=== PATIENT | female | born 1950 | race Caucasian/White ===

== ENCOUNTER 2024-03-25 19:03 | Observation (INO) ==
[2024-03-25 19:42] LABS: Hematocrit (blood only) 48.2 % (37.0-47.0); Hemoglobin 15.7 g/dl (12.0-16.0); Mean Corpuscular Hemoglobin 27.3 pg (25.0-34.0); Mean Corpuscular Hgb Conc 32.6 g/dL (32.0-36.0); Mean Corpuscular Volume 83.8 fL (80.0-100.0); Mean Platelet Volume 9.4 fL (9.4-12.4); Platelet Count 328 K/uL (130-400); RDW Coefficient of Variation 13.7 % (11.5-14.5); RDW Standard Deviation 41.8 fL (36.4-46.3); Red Blood Count 5.75 M/uL (4.20-5.40)
[2024-03-25 19:55] LABS: Albumin Level 4.8 gm/dl (3.4-5.0); Bilirubin,Total 0.5 mg/dl (0.2-1.0); Calcium 9.5 mg/dl (8.6-10.3); Potassium 3.5 mmol/L (3.5-5.1)
[2024-03-25 19:59] LABS: Basophils # (auto) 0.04 K/uL (0.00-0.20); Basophils % (auto) 0.2 %; Eosinophils # (auto) 0.01 K/uL (0.00-0.50); Eosinophils % (auto) 0.1 %; Immature Granulocytes # (auto) 0.09 K/uL (0.01-0.20); Immature Granulocytes % (auto) 0.5 %; Lymphocytes # (auto) 0.29 K/uL (1.20-3.40); Lymphocytes % (auto) 1.7 %; Monocytes # (auto) 0.49 K/uL (0.11-0.59); Monocytes % (auto) 2.8 %; Neutrophils # (auto) 16.48 K/uL (1.40-6.50); Neutrophils % (auto) 94.7 %
[2024-03-25 20:01] LABS: Albumin Globulin Ratio 1.6 (0.9-2); BUN Creatinine Ratio 37.3 (10-20); Total Protein 7.8 gm/dl (6.0-8.3)
[2024-03-25 21:39] LABS: Adenovirus F 40/41 PCR Not Detected (NotDetected); Astrovirus PCR Not Detected (NotDetected); Campylobacter PCR Not Detected (NotDetected); Cryptosporidium PCR Not Detected (NotDetected); Cyclospora cayetanensis PCR Not Detected (NotDetected); Entamoeba histolytica PCR Not Detected (NotDetected); Enteroaggregative E.coli(EAEC) Not Detected (NotDetected); Enteropathogenic E.coli (EPEC) Not Detected (NotDetected); Enterotoxigenic E.coli (ETEC) Not Detected (NotDetected); Giardia lamblia PCR Not Detected (NotDetected); Plesiomonas shigelloides PCR Not Detected (NotDetected); Rotavirus A PCR Not Detected (NotDetected); Salmonella PCR Not Detected (NotDetected); Sapovirus PCR Not Detected (NotDetected); Shiga-like Toxin E.coli (STEC) Not Detected (NotDetected); Shigella/Enteroinvasive E.coli Not Detected (NotDetected); Vibrio cholerae PCR Not Detected (NotDetected); Vibrio species PCR Not Detected (NotDetected); Yersinia enterocolitica PCR Not Detected (NotDetected)
[2024-03-25 21:41] LABS: Norovirus GI/GII PCR DETECTED (NotDetected)
--- NOTE | 2024-03-25 21:50 | Emergency Department Note ---
Impression & Plan Nausea, vomiting, and diarrhea ED Provider Note NAME: JUAN PABLO ROMERO AGE: 74 SEX: Female INFORMANT: Patient ED PROVIDER(S): Martin Sanders MD CHIEF COMPLAINT: Abdominal pain PLAN: Disposition: Admitted Outpatient prescription management: none Referral: None MEDICAL DECISION MAKING: Patient presented because abdominal pain. Workup was initiated. She was found to have a leukocytosis on CBC and dehydration on chemistry panel. C. difficile testing was negative. Patient was found to have norovirus on stool bio fire. Patient was hydrated and treated with morphine and Zofran. CT imaging of the abdomen pelvis was performed. Patient was found to have an enteritis. She was feeling better on reassessment although was still mildly symptomatic. Patient underwent a p.o. challenge. She had increased pain and nausea. She was given additional morphine and Zofran. Hydration was ordered as well. Suspect norovirus is the root cause of this illness however the patient is unable to tolerate p.o. and safely be discharged. Consultation was made with Dr. Travis Chiang of the [facility] service. Patient was evaluated in the ER for further management. Care/management discussed with: workshop manager Level of care consideration(s): After review of the information above and other included data, I feel the patient requires escalation of care to admission Triage Nursing notes: reviewed and agree them. Vital Signs: reviewed and remarkable for no significant abnormalities Additional History obtained from: none Chronic Medical/Social Conditions affecting care: History of colon resection, von Willebrand's disease Prior/ Outside/ External records reviewed: none Differential Diagnosis: Etiologies such as gastroenteritis, food borne illness, infections, appendicitis, diverticulitis, inflammatory bowel disease, obstruction, GI bleed, biliary pathology, as well as others were entertained. Diagnostics, independently interpreted by me: ECG: Deferred Cardiac Monitoring: Cardiac monitoring ordered by me: The patient was placed on continuous cardiac monitoring and observed. It revealed a normal sinus rhythm at 95 beats per minute without ectopy or evidence of dysrhythmia. Medical decision rules: none Imaging studies: CT imaging reveals the presence of enteritis. No obstruction. HPI: 74 year old Female arrives for evaluation of abdominal pain. This started today around 11:00 and is in the epigastrium. The patient also notes the following associated symptoms, nausea, vomiting, diarrhea, elevated heart rate. The patient has taken no medication for relieving factors. Current pain is rated as 8/10. Patient notes history of bowel resection secondary to diverticulitis. Pt denies LOC, headache, fevers, chills, diaphoresis, visual changes, neck pain, chest pain, breathing difficulties, back pain, melena, hematochezia, urinary symptoms, numbness, weakness, lymphadenopathy, rash, or other complaints. PAST MEDICAL HISTORY: See Below, diverticulitis, von Willebrand's disease PAST SURGICAL HISTORY: See Below, bowel resection SOCIAL HISTORY: See Below, former smoker HOME MEDICATIONS: See Below ALLERGIES: See Below VITALS: See Below PHYSICAL EXAMINATION: GENERAL: Awake, alert, uncomfortable-appearing, in no distress HENT: Normocephalic, atraumatic. Oropharynx unremarkable. EYES: Normal conjunctiva. Sclera non-icteric. NECK: Inspection normal. Non-tender. Supple. No nuchal rigidity. FROM. No masses. RESPIRATORY: Clear to auscultation. No wheezes. No rales. Normal respiratory effort. CARDIAC: Normal rate. Normal rhythm. No murmurs. No rubs. Extremities warm and well perfused. Pulses equal. No JVD. GI: Soft, non-distended. Epigastric tenderness to palpation. No rebound or guarding. No masses. RECTAL: Deferred. MUSCULOSKELETAL: Atraumatic. Chest examination reveals no tenderness. The back is symmetrical on inspection without obvious abnormality. There is no CVA tenderness to palpation. No joint edema. LOWER EXTREMITIES: Calves are equal size bilaterally and non-tender. No edema. No discoloration. NEURO: Normal sensorium. No sensory or motor deficits noted. SKIN: No rash or jaundice noted. PROCEDURES: none CRITICAL CARE: none OBSERVATION NOTE: none Past Med/Surg History Problem List (Updated 03/26/24 @ 01:59 by Daniel Fritz DO) Dehydration Fibromyalgia VWD (von Willebrand's disease) Asthma Gastroenteritis due to norovirus Abdominal pain Nausea, vomiting, and diarrhea (Acute) Social History Smoking Status: Former smoker Tobacco Type: Cigarettes Preferred Language: Argentine Feels Safe at Home: Yes Allergies Allergies Allergy/AdvReac Type Severity Reaction Status Date / Time bacitracin Allergy Unknown Unverified 03/26/24 00:59 [From Neosporin ([id number])] cat dander Allergy Unknown Unverified 03/26/24 00:59 neomycin Allergy Unknown Unverified 03/26/24 00:59 [From Neosporin ([id number])] polymyxin B Allergy Unknown Unverified 03/26/24 00:59 [From Neosporin ([id number])] aspirin AdvReac Unknown Unverified 03/26/24 00:59 Home Meds Home Medications Medication Instructions Recorded Confirmed fluticasone propionate 44 1 inh inhalation DAILY 03/26/24 03/26/24 mcg/actuation HFA aerosol inhaler gabapentin 300 mg capsule 300 mg PO TID 03/26/24 03/26/24 hydrochlorothiazide 25 mg tablet 25 mg PO DAILY 03/26/24 03/26/24 lorazepam 1 mg tablet 1 mg PO BID PRN Anxiety 03/26/24 03/26/24 meloxicam 7.5 mg tablet 7.5 mg PO DAILY 03/26/24 03/26/24 tirzepatide 10 mg/0.5 mL 10 mg subcut WK 03/26/24 03/26/24 subcutaneous pen injector (Rosa) Results & Data (ED) Vital Signs Vital Signs - 24 hr 03/25/24 19:14 03/25/24 21:11 03/25/24 21:12 Temperature 36.7 C Temperature Source Temporal Artery Scan Pulse Rate 108 H Pulse Rate [Apical] 98 H Pulse Rate from SpO2 Sensor Respiratory Rate 20 14 Respiratory Effort / Characteristics Non-Labored Spontaneous Non-Labored Spontaneous Respiratory Depth Normal Normal Respiratory Pattern Regular Blood Pressure 156/101 H 170/82 H Blood Pressure [Right Arm] 170/82 H Blood Pressure Mean 119 106 Blood Pressure Mean [Right Arm] 111 Blood Pressure Position [Right Arm] Sitting Pulse Oximetry 93 95 Oxygen Delivery Method Room Air Room Air Sepsis Recent Fever Within 48 Hours No Sepsis New/Unexplained Change in Mental Status No Sepsis Action Taken by Nursing No Action Required 03/25/24 21:16 03/25/24 21:36 03/25/24 22:06 Temperature Temperature Source Pulse Rate 102 H 98 H 95 H Pulse Rate [Apical] Pulse Rate from SpO2 Sensor 94 H Respiratory Rate 19 18 Respiratory Effort / Characteristics Respiratory Depth Respiratory Pattern Blood Pressure Blood Pressure [Right Arm] Blood Pressure Mean Blood Pressure Mean [Right Arm] Blood Pressure Position [Right Arm] Pulse Oximetry 92 Oxygen Delivery Method Sepsis Recent Fever Within 48 Hours Sepsis New/Unexplained Change in Mental Status Sepsis Action Taken by Nursing 03/25/24 22:39 03/25/24 23:00 03/25/24 23:06 Temperature Temperature Source Pulse Rate 90 89 91 H Pulse Rate [Apical] Pulse Rate from SpO2 Sensor 90 Respiratory Rate 17 14 Respiratory Effort / Characteristics Respiratory Depth Respiratory Pattern Blood Pressure Blood Pressure [Right Arm] Blood Pressure Mean Blood Pressure Mean [Right Arm] Blood Pressure Position [Right Arm] Pulse Oximetry 95 Oxygen Delivery Method Sepsis Recent Fever Within 48 Hours Sepsis New/Unexplained Change in Mental Status Sepsis Action Taken by Nursing 03/25/24 23:12 03/25/24 23:33 03/26/24 00:00 Temperature Temperature Source Pulse Rate 88 91 H Pulse Rate [Apical] 91 H Pulse Rate from SpO2 Sensor 90 Respiratory Rate 20 21 19 Respiratory Effort / Characteristics Non-Labored Respiratory Depth Normal Respiratory Pattern Blood Pressure Blood Pressure [Right Arm] Blood Pressure Mean Blood Pressure Mean [Right Arm] Blood Pressure Position [Right Arm] Pulse Oximetry 98 91 Oxygen Delivery Method Room Air Sepsis Recent Fever Within 48 Hours Sepsis New/Unexplained Change in Mental Status Sepsis Action Taken by Nursing 03/26/24 01:00 Temperature Temperature Source Pulse Rate 93 H Pulse Rate [Apical] Pulse Rate from SpO2 Sensor Respiratory Rate 22 Respiratory Effort / Characteristics Respiratory Depth Respiratory Pattern Blood Pressure Blood Pressure [Right Arm] Blood Pressure Mean Blood Pressure Mean [Right Arm] Blood Pressure Position [Right Arm] Pulse Oximetry Oxygen Delivery Method Sepsis Recent Fever Within 48 Hours Sepsis New/Unexplained Change in Mental Status Sepsis Action Taken by Nursing Laboratory Data 03/25/24 19:28 03/25/24 19:28 Lab Results 03/25/24 03/25/24 Range/Units 19:28 20:10 WBC 17.40 H (4.8-10.8) K/ul RBC 5.75 H (4.20-5.40) M/uL Hgb 15.7 (12.0-16.0) g/dl Hct 48.2 H (37.0-47.0) % MCV 83.8 (80.0-100.0) fL MCH 27.3 (25.0-34.0) pg MCHC 32.6 (32.0-36.0) g/dL RDW Std Deviation 41.8 (36.4-46.3) fL RDW Coeff of Jc 13.7 (11.5-14.5) % Plt Count 328 (130-400) K/uL MPV 9.4 (9.4-12.4) fL Immature Gran % (Auto) 0.5 % Neut % (Auto) 94.7 % Lymph % (Auto) 1.7 % [place] % (Auto) 2.8 % Eos % (Auto) 0.1 % Baso % (Auto) 0.2 % Neut # (Auto) 16.48 H (1.40-6.50) K/uL Lymph # (Auto) 0.29 L (1.20-3.40) K/uL [place] # (Auto) 0.49 (0.11-0.59) K/uL Eos # (Auto) 0.01 (0.00-0.50) K/uL Baso # (Auto) 0.04 (0.00-0.20) K/uL Immature Gran # (Auto) 0.09 (0.01-0.20) K/uL Sodium 141 (136-145) mmol/L Potassium 3.5 (3.5-5.1) mmol/L Chloride 104 (98-107) mmol/L Carbon Dioxide 26 (21-32) mmol/L Anion Gap 11 (3-11) BUN 25 H (6-23) mg/dl Creatinine 0.67 (0.6-1.2) mg/dl Est Cr Clr Drug Dosing 90.0 ml/min eGFR 92.23 BUN/Creatinine Ratio 37.3 H (10-20) Glucose 129 H (70-99(Fasting)) mg/dl Calcium 9.5 (8.6-10.3) mg/dl Total Bilirubin 0.5 (0.2-1.0) mg/dl AST 14 (13-39) U/L ALT 13 (7-52) U/L Alkaline Phosphatase 60 (34-104) U/L Troponin I High Sens 4.4 (0-14) pg/ml Total Protein 7.8 (6.0-8.3) gm/dl Albumin 4.8 (3.4-5.0) gm/dl Globulin 3.0 (2.5-4.0) gm/dl Albumin/Globulin Ratio 1.6 (0.9-2) Lipase 18 (11-82) U/L Stl C. cayetanensis PCR Not Detected (NotDetected) Stool Rotavirus A PCR Not Detected (NotDetected) Stl Adenov F 40/41 PCR Not Detected (NotDetected) Stool Astrovirus (PCR) Not Detected (NotDetected) Stool Campylobacter PCR Not Detected (NotDetected) Stl C. diff Tox B Gene Negative Cdiff Gene (Neg) Stool Cryptosporidium PCR Not Detected (NotDetected) Stl E.coli Shiga Tox PCR Not Detected (NotDetected) Stl Enterotoxigenic E PCR Not Detected (NotDetected) Stool EPEC (PCR) Not Detected (NotDetected) Stool EAEC (PCR) Not Detected (NotDetected) Stl E. histolytica PCR Not Detected (NotDetected) Stool Giardia Lamblia PCR Not Detected (NotDetected) Stool Salmonella PCR Not Detected (NotDetected) Stool Sapovirus (PCR) Not Detected (NotDetected) Stl P. shigelloides PCR Not Detected (NotDetected) Stl Shigella/EIEC PCR Not Detected (NotDetected) St Y.enterocolitica PCR Not Detected (NotDetected) Stool Vibrio (PCR) Not Detected (NotDetected) Stl Vibrio cholerae PCR Not Detected (NotDetected) Stl Norovirus GI/GII PCR DETECTED A* (NotDetected) Administered Medications Sodium Chloride (Nss) 1,000 mls @ 125 mls/hr IV .Q8H ASAD Stop: 03/27/24 00:44 Last Admin: 03/26/24 00:45 Dose: 125 mls/hr Documented By: RADHA Discontinued Medications Acetaminophen (Acetaminophen 500 Mg Tab) Confirm Administered Dose 1,000 mg .ROUTE .STK-MED ONE Stop: 03/25/24 23:30 Last Admin: 03/25/24 23:30 Dose: 1,000 mg Documented By: RADHA Sodium Chloride (Nss) 1,000 mls @ 999 mls/hr IV .Q1H1M ONE Stop: 03/25/24 22:39 Last Infusion: 03/25/24 23:13 Dose: Infused Documented By: Admin: 03/25/24 22:06 Dose: 999 mls/hr Documented By: [facility] Morphine Sulfate (Morphine Sulfate 4 Mg/Ml 1 Ml Carp\Vial) 4 mg IV Q15M PRN PRN Reason: Pain Stop: 04/08/24 21:37 Last Admin: 03/26/24 00:45 Dose: 4 mg Documented By: RADHA Ondansetron HCl (Ondansetron Inj 2 Mg/Ml 2 Ml Vial) 4 mg IV NOW STA Stop: 03/25/24 21:39 Last Admin: 03/25/24 22:06 Dose: 4 mg Documented By: URIEL Ondansetron HCl (Ondansetron Inj 2 Mg/Ml 2 Ml Vial) 4 mg IV NOW STA Stop: 03/26/24 00:40 Last Admin: 03/26/24 00:45 Dose: 4 mg Documented By: RADHA Imaging Data Radiologist's Impression: Abdomen/Pelvis CT 03/25/24 21:25 Exam(s): CT ABDOMEN + PELVIS Without Contrast EXAM: CT Abdomen and Pelvis Without Intravenous Contrast CLINICAL HISTORY: Abdominal Pain and vomiting. TECHNIQUE: Axial computed tomography images of the abdomen and pelvis without intravenous contrast. CTDI is 28.12 mGy and DLP is 1365.32 mGy-cm. Automated exposure control was utilized for the study. A dose lowering technique was utilized adhering to the principles of ALARA. COMPARISON: Bilateral breast prosthesis are partially visualized. FINDINGS: Lung bases: Unremarkable. No mass. No consolidation. ABDOMEN: Liver: Unremarkable. Gallbladder and bile ducts: Cholecystectomy. No ductal dilation. Pancreas: Unremarkable. No ductal dilation. Spleen: Unremarkable. No splenomegaly. Adrenals: Unremarkable. No mass. Kidneys and ureters: Parapelvic renal cysts are present bilaterally, no follow-up is needed. No obstructing stones. No hydronephrosis. Stomach and bowel: The small bowel and colon are fluid-filled without obstruction. Diverticulosis. No mucosal thickening. There are surgical changes of the distal colon. PELVIS: Appendix: No findings to suggest acute appendicitis. Bladder: Unremarkable. No stones. Reproductive: Unremarkable as visualized. ABDOMEN and PELVIS: Intraperitoneal space: Unremarkable. No free air. No significant fluid collection. Bones/joints: There are degenerative changes of the spine. No acute fracture. No dislocation. Soft tissues: Unremarkable. Vasculature: Unremarkable. No abdominal aortic aneurysm. Lymph nodes: Unremarkable. No enlarged lymph nodes. IMPRESSION: 1. The small bowel and colon are fluid-filled without obstruction. This likely represent enterocolitis. 2. Diverticulosis. Electronically signed by: Margie Toledo MD 03/25/24 22:58 PM Discharge Plan Visit Data Chief Complaint: Abdominal Pain Stated Complaint: VOMITING, HIGH HEART RATE, DIARREHEA ED Provider: Martin Sanders Discharge Problem: Nausea, vomiting, and diarrhea Discharge Instructions Interventions: ED Discharge Assessment Last Done: 03/26/24 02:53
[2024-03-25] MEDS: ONDANSETRON INJ 2 MG/ML 2 ML VIAL IV STA (22:06)
[2024-03-25] MEDS: SODIUM CHLORIDE 0.9% 1,000 ML IV ONE (22:06)
--- NOTE | 2024-03-25 22:59 | CT Scan Report ---
Exam(s): CT ABDOMEN + PELVIS Without Contrast EXAM: CT Abdomen and Pelvis Without Intravenous Contrast CLINICAL HISTORY: Abdominal Pain and vomiting. TECHNIQUE: Axial computed tomography images of the abdomen and pelvis without intravenous contrast. CTDI is 28.12 mGy and DLP is 1365.32 mGy-cm. Automated exposure control was utilized for the study. A dose lowering technique was utilized adhering to the principles of ALARA. COMPARISON: Bilateral breast prosthesis are partially visualized. FINDINGS: Lung bases: Unremarkable. No mass. No consolidation. ABDOMEN: Liver: Unremarkable. Gallbladder and bile ducts: Cholecystectomy. No ductal dilation. Pancreas: Unremarkable. No ductal dilation. Spleen: Unremarkable. No splenomegaly. Adrenals: Unremarkable. No mass. Kidneys and ureters: Parapelvic renal cysts are present bilaterally, no follow-up is needed. No obstructing stones. No hydronephrosis. Stomach and bowel: The small bowel and colon are fluid-filled without obstruction. Diverticulosis. No mucosal thickening. There are surgical changes of the distal colon. PELVIS: Appendix: No findings to suggest acute appendicitis. Bladder: Unremarkable. No stones. Reproductive: Unremarkable as visualized. ABDOMEN and PELVIS: Intraperitoneal space: Unremarkable. No free air. No significant fluid collection. Bones/joints: There are degenerative changes of the spine. No acute fracture. No dislocation. Soft tissues: Unremarkable. Vasculature: Unremarkable. No abdominal aortic aneurysm. Lymph nodes: Unremarkable. No enlarged lymph nodes. IMPRESSION: 1. The small bowel and colon are fluid-filled without obstruction. This likely represent enterocolitis. 2. Diverticulosis. Electronically signed by: Margie Toledo MD 03/25/24 22:58 PM
[2024-03-25] MEDS: ACETAMINOPHEN 500 MG TAB ONE (23:30)
[2024-03-26] MEDS: ONDANSETRON INJ 2 MG/ML 2 ML VIAL IV STA (00:45)
[2024-03-26] MEDS: MoRPHine SULFATE 4 MG/ML 1 ML CARP\\VIAL IV PRN (00:45)
[2024-03-26] MEDS: SODIUM CHLORIDE 0.9% 1,000 ML IV SCH (00:45)
--- NOTE | 2024-03-26 01:33 | History & Physical Report ---
Date of Service March 26, 2024 Assessment & Plan (1) Nausea, vomiting, and diarrhea: (2) Abdominal pain: (3) Gastroenteritis due to norovirus: (4) Asthma: (5) VWD (von Willebrand's disease): (6) Fibromyalgia: (7) Dehydration: Plan 74 year old female with h/o asthma, vWD, DJD, fibromyalgia presents with abdominal pain, N/V/D: #Abdominal Pain // #N/V/D // #Dehydration: Gastroenteritis d/t Acute Norovirus Infection: CT A/P consistent with enterocolitis +Leukocytosis secondary to infection, likely also some component of hemoconcentration Elevated BUN:Cr c/w dehydration, also explains tachycardia on admission Continue IV fluid resuscitation - NSS @125mL/hr PRN sx control: Zofran for N/V, morphine for abdominal pain AM labs: CBC, CMP Clear liquid diet, advance as tolerated Contact precautions Chronic Conditions: Asthma: continue Fluticasone Fibromyalgia: continue Gabapentin HTN: continue HCTZ Anxiety: continue Ativan BID PRN Dispo: Admit med-surg Diet: Clear liquid, advance as tolerated VTE ppx: Lovenox Full Code History of Present Illness Chief Complaint: abdominal pain, N/V/D Primary Care Provider: ESAU TODD 74 year old female with h/o asthma, vWD, DJD, fibromyalgia presents with abdominal pain, N/V/D. Epigastric pain started earlier today. The patient also notes nausea, vomiting, diarrhea (too many times to count) and elevated heart rate. No known sick contacts but patient just traveled from [place]. Denies fevers/chills. At present, notes improvement after Zofran and morphine. Now tolerating small amounts of PO ice/fluids, not yet eating. ED Course: Patient tachycardic on arrival, labs consistent with dehydration - HR improving with fluid resuscitation. +Leukocytosis CT A/P suggestive of enterocolitis Stool biofire +Norovirus Allergies Allergy/AdvReac Type Severity Reaction Status Date / Time bacitracin Allergy Unknown Unverified 03/26/24 00:59 [From Neosporin ([id number])] cat dander Allergy Unknown Unverified 03/26/24 00:59 neomycin Allergy Unknown Unverified 03/26/24 00:59 [From Neosporin ([id number])] polymyxin B Allergy Unknown Unverified 03/26/24 00:59 [From Neosporin ([id number])] aspirin AdvReac Unknown Unverified 03/26/24 00:59 Home Medications Medication Instructions Recorded Confirmed Type fluticasone propionate 44 1 inh inhalation DAILY 03/26/24 03/26/24 History mcg/actuation HFA aerosol inhaler gabapentin 300 mg capsule 300 mg PO TID 03/26/24 03/26/24 History hydrochlorothiazide 25 mg tablet 25 mg PO DAILY 03/26/24 03/26/24 History lorazepam 1 mg tablet 1 mg PO BID PRN Anxiety 03/26/24 03/26/24 History meloxicam 7.5 mg tablet 7.5 mg PO DAILY 03/26/24 03/26/24 History tirzepatide 10 mg/0.5 mL 10 mg subcut WK 03/26/24 03/26/24 History subcutaneous pen injector (Mounjaro) Past Med/Surg History Problem List (Updated 03/26/24 @ 16:54 by Angel Conroy MD) Hypokalemia Dehydration Fibromyalgia VWD (von Willebrand's disease) Asthma Gastroenteritis due to norovirus Abdominal pain Nausea, vomiting, and diarrhea (Acute) Social History Smoking Status: Former smoker Tobacco Type: Cigarettes Second Hand Exposure: No; Do You Dip or Chew Tobacco: No; Tobacco Cessation Education Requested by Patient: No Hx Alcohol Use: No Hx Substance Use: No Preferred Language: Faroese Communication Ability: Effective 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 Beliefs That Will Affect Care: None Current Living Situation: Alone Other Information That Helps Us Care for You: No Feels Safe at Home: Yes Safety Concerns: Feels Safe At This Time Assistive Devices: Cane and Glasses Review of Systems Review of Systems: as per HPI Physical Exam Physical Exam: Constitutional: no acute distress HEENT: NCAT, no conjunctival injection CV: extremities well-perfused, no LE edema Resp: no increased work of breathing GI: nondistended MSK: no gross deformities Skin: warm, dry, no rash appreciated Neuro: alert, oriented, no focal neurologic deficit appreciated Results & Data Results & Data Vital Signs (Past 12 Hours) Vital Signs Temp Pulse Pulse Resp BP BP Pulse Ox 03/25/24 23:12 91 H 20 98 03/25/24 23:00 89 03/25/24 21:16 102 H 03/25/24 21:11 98 H 14 170/82 H 95 03/25/24 19:14 36.7 C 108 H 20 156/101 H 93 O2 Del Method 03/25/24 23:12 Room Air 03/25/24 23:00 03/25/24 21:16 03/25/24 21:11 Room Air 03/25/24 19:14 Room Air Code Status & VTE Plan VTE Prophylaxis Plan VTE Prophylaxis will be ordered: Yes Supervising Physician Co-Signing Physician Notes Attending addendum: I have physically seen this patient, have supervised the medical residents activities, and agree with the H&P unless as otherwise noted. Assessment and Plan: The patient is a 74-year-old female with past medical history including asthma, VWD, DJD, fibromyalgia, and anxiety. She presents to the emergency department with abdominal pain, nausea, vomiting and diarrhea Workup in the emergency department including stool PCR is positive for norovirus, and CT scan abdomen pelvis consistent with enterocolitis. Patient was referred for evaluation for treatment for above. Patient reports recently traveling here from [place]. #Gastroenteritis secondary to neurovirus infection- CT consistent with enterocolitis Stool PCR positive for norovirus Symptomatic treatment/supportive treatment NSS +25 mL/h x 2 L Zofran 4 mg IV every 6 hours as needed Morphine sulfate as noted for abdominal pain as needed Follow serial CBC with differential, chemistry profile Clear liquid diet, advance as tolerated Contact precautions Hypertension hold HCTZ Anxiety-continue lorazepam twice daily as needed Remaining orders and notations as noted Resident Activity Tracking Resident Involvement: Resident Care Provided Care Provided: Adult Hospital Medicine
[2024-03-26] MEDS ORDERED: MoRPHine SULFATE 2 MG/ML CARP IV PRN (02:52)
[2024-03-26] MEDS ORDERED: MELATONIN 3 MG TAB PO PRN (02:52)
[2024-03-26] MEDS ORDERED: ALUMINUM/MAGNESIUM SUSP 30 ML UDC PO PRN (02:52)
[2024-03-26] MEDS ORDERED: ACETAMINOPHEN 325 MG TAB PO PRN (02:52)
[2024-03-26 03:55] LABS: Basophils # (auto) 0.03 K/uL (0.00-0.20); Basophils % (auto) 0.3 %; Hematocrit (blood only) 39.3 % (37.0-47.0); Hemoglobin 12.7 g/dl (12.0-16.0); Immature Granulocytes # (auto) 0.05 K/uL (0.01-0.20); Immature Granulocytes % (auto) 0.5 %; Lymphocytes # (auto) 0.33 K/uL (1.20-3.40); Lymphocytes % (auto) 3.1 %; Mean Corpuscular Hemoglobin 27.6 pg (25.0-34.0); Mean Corpuscular Hgb Conc 32.3 g/dL (32.0-36.0); Mean Corpuscular Volume 85.4 fL (80.0-100.0); Mean Platelet Volume 9.3 fL (9.4-12.4); Monocytes # (auto) 0.59 K/uL (0.11-0.59); Monocytes % (auto) 5.6 %; Neutrophils % (auto) 90.5 %; Platelet Count 275 K/uL (130-400); RBC Morphology Unremarkable; RDW Coefficient of Variation 13.9 % (11.5-14.5); RDW Standard Deviation 43.3 fL (36.4-46.3)
[2024-03-26 04:09] LABS: Albumin Globulin Ratio 1.4 (0.9-2); Albumin Level 3.6 gm/dl (3.4-5.0); BUN Creatinine Ratio 39.1 (10-20); Bilirubin,Total 0.4 mg/dl (0.2-1.0); Calcium 7.8 mg/dl (8.6-10.3); Creatinine Clr Calc Pharmacy 94.2 ml/min; Globulin 2.6 gm/dl (2.5-4.0); Potassium 3.1 mmol/L (3.5-5.1); Total Protein 6.2 gm/dl (6.0-8.3)
[2024-03-26 04:35] LABS: Appearance Urine Cloudy (Clear); Bacteria Urine Automated None Seen (None Seen); Bilirubin Urine 1+ (Negative); Blood Urine Negative (Negative); Color Urine Dark Yellow; Glucose Urine UA Negative (Negative); Ketones Urine Negative (Negative); Leukocyte Esterase Urine Negative (Negative); Mucus Urine Present (None Prsent); Nitrite Urine Negative (Negative); Protein Urine Trace (Negative); Specific Gravity Urine 1.039 (1.000-1.030); Urobilinogen Urine Negative (Negative); WBC Urine Automated 0-5 /hpf (0-5); pH Urine 5.5 (4.5-7.5)
[2024-03-26] MEDS: ONDANSETRON INJ 2 MG/ML 2 ML VIAL IV PRN (05:37)
--- NOTE | 2024-03-26 07:13 | Electrocardiogram Report ---
Test Reason : Blood Pressure : */* mmHG Vent. Rate : 104 BPM Atrial Rate : 104 BPM P-R Int : 188 ms QRS Dur : 88 ms QT Int : 342 ms P-R-T Axes : 28 10 50 degrees QTcB Int : 449 ms Sinus tachycardia Low voltage QRS Nonspecific ST and T wave abnormality Abnormal ECG No previous ECGs available Confirmed by Rahul Branch ([id number]) on 03/26/2024 7:13:09 AM Referred By: REFERRED SELF Confirmed By: Rahul Branch
[2024-03-26 08:42] LABS: Magnesium 2.1 mg/dl (1.7-2.4)
[2024-03-26] MEDS ORDERED: PANTOprazole 40 MG/10 ML SYR IV SCH (09:00)
[2024-03-26] MEDS ORDERED: hydroCHLOROthiazide 25 MG TAB PO SCH (09:00)
[2024-03-26] MEDS: NSS + 20MEQ KCL 20 MEQ/1,000 ML BAG IV SCH (09:19)
[2024-03-26] MEDS: FLUTICASONE FUROATE 100MCG 14 PUFFS/INHALER INH SCH (09:20)
[2024-03-26] MEDS: GABAPENTIN 300 MG CAP PO SCH (09:20)
[2024-03-26] MEDS: POTASSIUM CHLORIDE CRTAB 20 MEQ TABCR PO SCH (09:28)
[2024-03-26] MEDS: FAMOTIDINE 20MG IV PUSH 20 MG/5 ML SYR IV SCH (09:36)
[2024-03-26] MEDS: ENOXAPARIN INJ 40 MG/0.4 ML SYR SQ SCH (09:36)
[2024-03-26] MEDS: DICYCLOMINE HCL 10 MG CAP PO ONE (13:34)
[2024-03-26] MEDS: KETOROLAC TROMETHAMINE 15 MG/ML VIAL IV ONE (13:58)
[2024-03-26] MEDS ORDERED: HYDROCODONE/ACETAMOPHEN 5/325MG TAB PO PRN (14:23)
--- NOTE | 2024-03-26 16:52 | Hospitalist Progress Note ---
Date of Service March 26, 2024 Assessment & Plan (1) Gastroenteritis due to norovirus: Plan: cont supportive care including IV fluids, change IV PPI to IV pepcid BID, bentyl prn, anti-emetics, etc. clear liquid diet for now; advance when she reports feeling ready for such replace low K contact precautions discussed natural course of norovirus, transmission, etc. encouraged her not to use pain meds unless absolutely necessary as this will slow GI motility norco low-dose ordered for prn use if severe pain is present (2) VWD (von Willebrand's disease): Plan: known history of such (3) Hypokalemia: Plan: add KCL to IV fluids place on K-dur 20meq PO TID hold HCTZ repeat BMP am mag level noted to be normal Admission and Anticipated Discharge Date Admission Date: March 26, 2024 Subjective patient reports at least 2 diarrhea stools since this am no further emesis main complaint is that of stomach upset, pain, and cramps no appetite declines any diet advancement patient reports she is from the [facility] region she was up in [place] due to a in her family ([id number]) she also received more news today that another family member she is anxious to get released from the hospital however, she admits she is not really drinking any fluids Review of Systems Review of Systems: cv - no chest pain pulm - no dyspnea GI - no blood per rectum Physical Exam Physical Exam: gen - looks sick but nontoxic, NAD, lying in bed mouth - MMM neck - no JVD heart - RRR, s1 s2, no murmur lungs - CTA b/l abd - soft but mildly tender in multiple locations, BS hyperactive, no HSM; no peritoneal signs ext - warm, pulses b/l feet 2+, no edema of feet psych - a/o x 3 Results & Data Results & Data Vital Signs (Past 12 Hours) Vital Signs Temp Pulse Pulse Pulse Resp BP BP 03/26/24 15:22 36.6 C 80 16 172/80 H 03/26/24 15:00 141/77 H 03/26/24 15:00 80 16 03/26/24 09:30 82 17 03/26/24 07:29 91 H 03/26/24 05:00 96 H 23 160/72 H Pulse Ox O2 Del Method 03/26/24 15:22 94 Room Air 02/16/25 15:00 03/26/24 15:00 95 Room Air 03/26/24 09:30 96 Room Air 03/26/24 07:29 03/26/24 05:00 92 Room Air Laboratory Results Laboratory Results - last 24 hr 03/25/24 03/25/24 03/26/24 19:28 20:10 03:21 WBC 10.50 RBC 4.60 Hgb 12.7 D Hct 39.3 MCV 85.4 MCH 27.6 MCHC 32.3 RDW Std Deviation 43.3 RDW Coeff of Jc 13.9 Plt Count 275 MPV 9.3 L Immature Gran % (Auto) 0.5 Neut % (Auto) 90.5 Lymph % (Auto) 3.1 Franklin % (Auto) 5.6 Eos % (Auto) 0.0 Baso % (Auto) 0.3 Neut # (Auto) 9.50 H Lymph # (Auto) 0.33 L Franklin # (Auto) 0.59 Eos # (Auto) 0.00 Baso # (Auto) 0.03 Immature Gran # (Auto) 0.05 RBC Morphology Unremarkable Sodium 140 Potassium 3.1 L Chloride 108 H Carbon Dioxide 26 Anion Gap 6 BUN 25 H Creatinine 0.64 Est Cr Clr Drug Dosing 94.2 eGFR 93.26 BUN/Creatinine Ratio 39.1 H Glucose 108 H Calcium 7.8 L Magnesium 2.1 Total Bilirubin 0.4 AST 19 ALT 15 Alkaline Phosphatase 47 Troponin I High Sens 4.4 Total Protein 6.2 D Albumin 3.6 Globulin 2.6 Albumin/Globulin Ratio 1.4 Urine Color Urine Appearance Urine pH Ur Specific [place] Urine Protein Urine Glucose (UA) Urine Ketones Urine Blood Urine Nitrite Urine Bilirubin Urine Urobilinogen Ur Leukocyte Esterase Urine WBC (Auto) Urine RBC (Auto) U Hyaline Cast (Auto) U Epithel Cells (Auto) Urine Bacteria (Auto) Urine Mucus Stl C. cayetanensis PCR Not Detected Stool Rotavirus A PCR Not Detected Stl Adenov F 40/41 PCR Not Detected Stool Astrovirus (PCR) Not Detected Stool Campylobacter PCR Not Detected Stl C. diff Tox B Gene Negative Cdiff Gene Stool Cryptosporidium PCR Not Detected Stl E.coli Shiga Tox PCR Not Detected Stl Enterotoxigenic E PCR Not Detected Stool EPEC (PCR) Not Detected Stool EAEC (PCR) Not Detected Stl E. histolytica PCR Not Detected Stool Giardia Lamblia PCR Not Detected Stool Salmonella PCR Not Detected Stool Sapovirus (PCR) Not Detected Stl P. shigelloides PCR Not Detected Stl Shigella/EIEC PCR Not Detected St Y.enterocolitica PCR Not Detected Stool Vibrio (PCR) Not Detected Stl Vibrio cholerae PCR Not Detected Stl Norovirus GI/GII PCR DETECTED A* 03/26/24 03:47 WBC RBC Hgb Hct MCV MCH MCHC RDW Std Deviation RDW Coeff of Jc Plt Count MPV Immature Gran % (Auto) Neut % (Auto) Lymph % (Auto) Franklin % (Auto) Eos % (Auto) Baso % (Auto) Neut # (Auto) Lymph # (Auto) Franklin # (Auto) Eos # (Auto) Baso # (Auto) Immature Gran # (Auto) RBC Morphology Sodium Potassium Chloride Carbon Dioxide Anion Gap BUN Creatinine Est Cr Clr Drug Dosing eGFR BUN/Creatinine Ratio Glucose Calcium Magnesium Total Bilirubin AST ALT Alkaline Phosphatase Troponin I High Sens Total Protein Albumin Globulin Albumin/Globulin Ratio Urine Color Dark Yellow Urine Appearance Cloudy A Urine pH 5.5 Ur Specific [place] 1.039 H Urine Protein Trace H Urine Glucose (UA) Negative Urine Ketones Negative Urine Blood Negative Urine Nitrite Negative Urine Bilirubin 1+ H Urine Urobilinogen Negative Ur Leukocyte Esterase Negative Urine WBC (Auto) 0-5 Urine RBC (Auto) 3-5 H U Hyaline Cast (Auto) 3-5 H U Epithel Cells (Auto) 6-10 H Urine Bacteria (Auto) None Seen Urine Mucus Present A Stl C. cayetanensis PCR Stool Rotavirus A PCR Stl Adenov F 40/41 PCR Stool Astrovirus (PCR) Stool Campylobacter PCR Stl C. diff Tox B Gene Stool Cryptosporidium PCR Stl E.coli Shiga Tox PCR Stl Enterotoxigenic E PCR Stool EPEC (PCR) Stool EAEC (PCR) Stl E. histolytica PCR Stool Giardia Lamblia PCR Stool Salmonella PCR Stool Sapovirus (PCR) Stl P. shigelloides PCR Stl Shigella/EIEC PCR St Y.enterocolitica PCR Stool Vibrio (PCR) Stl Vibrio cholerae PCR Stl Norovirus GI/GII PCR Diagnostic Findings Abdomen/Pelvis CT 03/25/24 21:25 Exam(s): CT ABDOMEN + PELVIS Without Contrast EXAM: CT Abdomen and Pelvis Without Intravenous Contrast CLINICAL HISTORY: Abdominal Pain and vomiting. TECHNIQUE: Axial computed tomography images of the abdomen and pelvis without intravenous contrast. CTDI is 28.12 mGy and DLP is 1365.32 mGy-cm. Automated exposure control was utilized for the study. A dose lowering technique was utilized adhering to the principles of ALARA. COMPARISON: Bilateral breast prosthesis are partially visualized. FINDINGS: Lung bases: Unremarkable. No mass. No consolidation. ABDOMEN: Liver: Unremarkable. Gallbladder and bile ducts: Cholecystectomy. No ductal dilation. Pancreas: Unremarkable. No ductal dilation. Spleen: Unremarkable. No splenomegaly. Adrenals: Unremarkable. No mass. Kidneys and ureters: Parapelvic renal cysts are present bilaterally, no follow-up is needed. No obstructing stones. No hydronephrosis. Stomach and bowel: The small bowel and colon are fluid-filled without obstruction. Diverticulosis. No mucosal thickening. There are surgical changes of the distal colon. PELVIS: Appendix: No findings to suggest acute appendicitis. Bladder: Unremarkable. No stones. Reproductive: Unremarkable as visualized. ABDOMEN and PELVIS: Intraperitoneal space: Unremarkable. No free air. No significant fluid collection. Bones/joints: There are degenerative changes of the spine. No acute fracture. No dislocation. Soft tissues: Unremarkable. Vasculature: Unremarkable. No abdominal aortic aneurysm. Lymph nodes: Unremarkable. No enlarged lymph nodes. IMPRESSION: 1. The small bowel and colon are fluid-filled without obstruction. This likely represent enterocolitis. 2. Diverticulosis. Electronically signed by: Margie Toledo MD 03/25/24 22:58 PM PG Care Time/CCT Total # of Minutes Spent Total Time Spent with Patient: Total time spent is greater than 50% in coordination of care (as documented) at patient's floor/unit and/or counseling patient: Coding Level of Care Code None Diagnoses Gastroenteritis due to norovirus A08.11 VWD (von Willebrand's disease) D68.00 Hypokalemia E87.6
[2024-03-26] MEDS: DICYCLOMINE HCL 10 MG CAP PO PRN (17:41)
[2024-03-26] MEDS: LORazepam 1 MG TAB PO PRN (19:29)
[2024-03-26 19:32] VITALS: O2SAT 93
--- NOTE | 2024-03-26 19:59 | Billing Data ---
Date of Service March 26, 2024 Coding Level of Care Code 84002 INT INP/OBS CARE
[2024-03-27 07:07] VITALS: BP 147/78; RESP 16; TEMP 97.9
[2024-03-27 07:35] LABS: BUN Creatinine Ratio 21.4 (10-20); Calcium 7.8 mg/dl (8.6-10.3); Creatinine Clr Calc Pharmacy 107.6 ml/min; Potassium 3.7 mmol/L (3.5-5.1)
--- NOTE | 2024-03-27 14:01 | Discharge Summary ---
Discharge Summary Date of Service date of admission - March 26, 2024 date of discharge - March 27, 2024 Principal Dx & Hospital Course #1 = Principal Diagnosis (1) Gastroenteritis due to norovirus: Patient presented with nausea/vomiting/diarrhea/abdominal pain. CT abd/pelvis showed small & large bowel filled with liquid stool c/w enterocolitis. Stool BioFire testing was positive for norovirus. She was given IV fluids, anti-spasmodics, acid reducers, anti-emetics, and supportive care. Electrolyte abnormalities were corrected. Kept on clear liquids hospital day #1, then advanced to full liquids on hospital day #2. She was able to tolerate such. Hydration status was much improved on hospital day #2, and electrolytes/creatinine were normal on day of discharge. Discussed natural course of norovirus, transmission, etc. prior to discharge home. Discussed diet upon transition home - continue copious hydration, gradually reintroduce soft/bland/low-fiber foods over the next several days. Gave the following at discharge - zofran prn, protonix x 10 days, bentyl prn. Asked to hold HCTZ & meloxicam for a few more days in order to avoid renal injury in the setting of resolving diarrhea. (2) VWD (von Willebrand's disease): known history of such (3) Hypokalemia: replaced with IV/PO potassium resolved 2nd to HCTZ 2nd to vomiting/diarrhea hold HCTZ for 2-3 days post-d/c, then can resume thereafter magnesium level was normal while here Notes For Next Care Provider Medication Changes From Visit 1. zofran ODT - 4mg q6h prn nausea/emesis 2. bentyl 10mg TID prn spasms/abd discomfort 3. protonix 40mg daily x 10 days Admission HPI Per Admitting Provider 74 year old female with h/o asthma, vWD, DJD, fibromyalgia presents with abdominal pain, N/V/D. Epigastric pain started earlier today. The patient also notes nausea, vomiting, diarrhea (too many times to count) and elevated heart rate. No known sick contacts but patient just traveled from [place]. Denies fevers/chills. At present, notes improvement after Zofran and morphine. Now tolerating small amounts of PO ice/fluids, not yet eating. ED Course: Patient tachycardic on arrival, labs consistent with dehydration - HR improving with fluid resuscitation. +Leukocytosis CT A/P suggestive of enterocolitis Stool biofire +Norovirus Discharge Exam gen - looks much better today; NAD, lying comfortably in bed mouth - MMM neck - no JVD heart - RRR, s1 s2, no murmur lungs - CTA b/l abd - soft, nontender, BS+, ND, no peritoneal signs, no HSM ext - warm, pulses b/l feet 2+, no edema of feet psych - a/o x 3 Discharge Plan Discharge Items Patient Disposition: Home - Self-Care Reason For Visit: Vomiting, diarrhea, abdominal pain Discharge Diagnosis: 1. norovirus gastroenteritis - improving 2. hypokalemia (low potassium) - resolved 3. dehydration - resolved Activity: As commented below Activity Comment: gradually increase your activities over the next 5 days Non-emergency contact: Primary Care Provider Call non-emergency contact if: you have any medication questions, your symptoms worsen, your pain is not controlled, your pain is worsening, your pain is unusual for you and your pain is concerning for you Follow-up/Referrals: Michael Thomas, [Primary Care Provider] - (please see your family doctor upon return to [place] - ideally within 1 week ) Diet: Low Fiber Addtl Attending Provider Instructions: Ms Godwin, You were hospitalized due to norovirus infection. This is a common viral infection of the digestive tract that affects both children & adults. See handout. The virus works its way into the small & large intestines causing abdominal pain, abdominal cramps, nausea, vomiting, and severe diarrhea. Symptoms can last up to 5-7 days. The first 48 hours of the illness tend to be the worst. There is no antidote or specific treatment for norovirus - it simply has to run its course. The villatoro is good hydration. The medicines that we prescribe treat the symptoms of the illness. When you get home focus on good hydration. As the illness starts to resolve your appetite for solids will gradually return. Over the next 1-2 days you can start to introduce bland, easy to digest solids (toast, crackers, potatoes, low-fiber cereal, yogurt, etc). Gradually work back to a low fiber diet (see handout). After the illness is completely gone you can resume your typical diet. Good handwashing with soap/water for at least 20 seconds is the best way to pre vent household spread of the virus. You can also use bleach wipes to wipe down high-touch surfaces in your kitchen, bathroom, car, etc. The bathroom is the most important location - wipe down faucets, door knobs, toilet levers and seats, etc. Recommendations - 1. ondansetron 4mg every 6 hours as needed for nausea/vomiting 2. pantoprazole 40mg once daily x 10 days - you can start this today - this is to reduce acid and heal any stomach irritation from the illness 3. dicyclomine 10mg every 8 hours as needed for abdominal pain/cramps/spasm * this medicine may give you dry mouth or dry eyes * it can also make you tired 4. follow-up with your family doctor upon return to [place] 5. when you travel later this week be sure to stretch your legs frequently and get up and take a short walk while on the airplane - these measures reduce the risk of getting a DVT blood clot in the legs 6. HOLD your hydrochlorothiazide until your diarrhea is largely resolved (2-3 days or so) 7. ok to resume your meloxicam in 2-3 days as well Return to [facility] if - * you have worsening abdominal pain * you have recurrent vomiting that is not responding to your nausea/vomiting medicine (ondansetron) * you have concerns for recurrent dehydration * you feel dizzy or lightheaded * you have shortness of breath * any other concerns It was our pleasure to care for you. Please accept our condolences on the loss of your loved one. -Dr Conroy Pending Studies at Discharge: No Stand-Alone Forms: My [facility], Smoking Cessation Medications and DC Order Prescriptions: New dicyclomine 10 mg capsule 10 mg PO TID PRN (Reason: abdominal pain/spasm/cramps) Qty: 10 0RF pantoprazole [Protonix] 40 mg tablet,delayed release (DR/EC) 40 mg PO QAM 10 Days Qty: 10 0RF ondansetron 4 mg tablet,disintegrating 4 mg PO Q6H PRN (Reason: nausea and vomiting) Qty: 10 0RF Continued fluticasone propionate 44 mcg/actuation HFA aerosol inhaler 1 inh INHALATION DAILY gabapentin 300 mg capsule 300 mg PO TID lorazepam 1 mg tablet 1 mg PO BID PRN (Reason: Anxiety) Mounjaro 10 mg/0.5 mL pen injector 10 mg subcut WK Held meloxicam 7.5 mg tablet 7.5 mg PO DAILY Hold Instructions: would hold for about 2-3 days, then may resume thereafter hydrochlorothiazide 25 mg tablet 25 mg PO DAILY Hold Instructions: would hold for the next 2-3 days (while still having diarrhea); once diarrhea is largely resolved you may resume Discharge Orders: Discharge Order (Routine); Ordered 03/27/24 Ordered By: nAgel Mendosa/Other Patient Handouts: Low-Fiber Diet, Understanding Norovirus Admission Data Admit Date/Time: 03/26/24 01:33 Attending Provider: Angel Conroy Admit Provider: Daniel Fritz Primary Care Provider: Michael Thomas Other Interventions: Discharge Summary Assessment (RN) Last Done: 03/27/24 14:56 Discharge Summary Assessment (RN) Last Done: 03/27/24 14:56 Hospital Stay Data Diagnostic Imagining Performed Abdomen/Pelvis CT 03/25/24 21:25 Exam(s): CT ABDOMEN + PELVIS Without Contrast EXAM: CT Abdomen and Pelvis Without Intravenous Contrast CLINICAL HISTORY: Abdominal Pain and vomiting. TECHNIQUE: Axial computed tomography images of the abdomen and pelvis without intravenous contrast. CTDI is 28.12 mGy and DLP is 1365.32 mGy-cm. Automated exposure control was utilized for the study. A dose lowering technique was utilized adhering to the principles of ALARA. COMPARISON: Bilateral breast prosthesis are partially visualized. FINDINGS: Lung bases: Unremarkable. No mass. No consolidation. ABDOMEN: Liver: Unremarkable. Gallbladder and bile ducts: Cholecystectomy. No ductal dilation. Pancreas: Unremarkable. No ductal dilation. Spleen: Unremarkable. No splenomegaly. Adrenals: Unremarkable. No mass. Kidneys and ureters: Parapelvic renal cysts are present bilaterally, no follow-up is needed. No obstructing stones. No hydronephrosis. Stomach and bowel: The small bowel and colon are fluid-filled without obstruction. Diverticulosis. No mucosal thickening. There are surgical changes of the distal colon. PELVIS: Appendix: No findings to suggest acute appendicitis. Bladder: Unremarkable. No stones. Reproductive: Unremarkable as visualized. ABDOMEN and PELVIS: Intraperitoneal space: Unremarkable. No free air. No significant fluid collection. Bones/joints: There are degenerative changes of the spine. No acute fracture. No dislocation. Soft tissues: Unremarkable. Vasculature: Unremarkable. No abdominal aortic aneurysm. Lymph nodes: Unremarkable. No enlarged lymph nodes. IMPRESSION: 1. The small bowel and colon are fluid-filled without obstruction. This likely represent enterocolitis. 2. Diverticulosis. Electronically signed by: Margie Toledo MD 03/25/24 22:58 PM Pending Results Patient Have Any Pending Studies at Discharge: No Discharge Instructions Given to Patient (Per Discharging Provider) Ms Godwin, Andrae were hospitalized due to norovirus infection. This is a common viral infection of the digestive tract that affects both children & adults. See handout. The virus works its way into the small & large intestines causing abdominal pain, abdominal cramps, nausea, vomiting, and severe diarrhea. Symptoms can last up to 5-7 days. The first 48 hours of the illness tend to be the worst. There is no antidote or specific treatment for norovirus - it simply has to run its course. The villatoro is good hydration. The medicines that we prescribe treat the symptoms of the illness. When you get home focus on good hydration. As the illness starts to resolve your appetite for solids will gradually return. Over the next 1-2 days you can start to introduce bland, easy to digest solids (toast, crackers, potatoes, low-fiber cereal, yogurt, etc). Gradually work back to a low fiber diet (see handout). After the illness is completely gone you can resume your typical diet. Good handwashing with soap/water for at least 20 seconds is the best way to prevent household spread of the virus. You can also use bleach wipes to wipe down high-touch surfaces in your kitchen, bathroom, car, etc. The bathroom is the most important location - wipe down faucets, door knobs, toilet levers and seats, etc. Recommendations - 1. ondansetron 4mg every 6 hours as needed for nausea/vomiting 2. pantoprazole 40mg once daily x 10 days - you can start this today - this is to reduce acid and heal any stomach irritation from the illness 3. dicyclomine 10mg every 8 hours as needed for abdominal pain/cramps/spasm * this medicine may give you dry mouth or dry eyes * it can also make you tired 4. follow-up with your family doctor upon return to [place] 5. when you travel later this week be sure to stretch your legs frequently and get up and take a short walk while on the airplane - these measures reduce the risk of getting a DVT blood clot in the legs 6. HOLD your hydrochlorothiazide until your diarrhea is largely resolved (2-3 days or so) 7. ok to resume your meloxicam in 2-3 days as well Return to [facility] if - * you have worsening abdominal pain * you have recurrent vomiting that is not responding to your nausea/vomiting medicine (ondansetron) * you have concerns for recurrent dehydration * you feel dizzy or lightheaded * you have shortness of breath * any other concerns It was our pleasure to care for you. Please accept our condolences on the loss of your loved one. -Dr Conroy Total Time Total Time Spent Total Time Spent (In Minutes): 25 Coding Level of Care Code 93870 IN/OBS DISCH 30 MIN/LESS Diagnoses Gastroenteritis due to norovirus A08.11 VWD (von Willebrand's disease) D68.00 Hypokalemia E87.6
[2024-03-27 14:56] VITALS: PULSE 80
== END 2024-03-27 14:56 | disposition home or self-care (01) | DRG 392 ==
LOC: ED 19:03 → SUATTDRO 03-26 01:33 → EDINP 03-26 01:33 → INTOOBSV 03-26 01:33 → 3W 03-26 02:53